=== PATIENT | female | born 1990 ===

== ENCOUNTER 2020-01-03 07:15 | Inpatient (IN) | payer OTHER ==
[~2020-01-03] VITALS: Ht 167.6 cm; Wt 2.7 kg
[2020-01-11] MEDS ORDERED: PRENATAL TABLE1 EAC1 (10:17)
== END 2020-01-14 11:03 | disposition home or self-care (01) | DRG 788 ==
LOC: OB/GYN 01-11 07:15 → LDR 01-11 09:39 → OB/GYN 01-11 11:57
PROVIDERS: ADMIT Obstetrics & Gynecology; ATTEND Obstetrics & Gynecology
PROC: 4A1HXCZ Monitoring of Products of Conception, Cardiac Rate, External Approach (ICD-10-PCS; 2020-01-11)
PROC: 10D00Z1 Extraction of Products of Conception, Low, Open Approach (ICD-10-PCS; principal; 2020-01-11 09:00)
DX: O64.8XX0 Obstructed labor due to other malposition and malpresentation, not applicable or unspecified (principal); Z3A.39 39 weeks gestation of pregnancy; Z37.0 Single live birth; Z20.828 Contact with and (suspected) exposure to other viral communicable diseases